=== PATIENT | male | born 1965 | race Two or more races ===

== ENCOUNTER 2025-01-29 11:56 | Inpatient (IN) | payer MEDICAID, OTHER ==
[~2025-01-29] VITALS: Ht 167.6 cm; Wt 57.3 kg
--- NOTE | 2025-01-29 12:06 | ED.PDOC ---
History of Present Illness HPI Comments 59 y/o M, with PMHx of HTN and HLD presents to the ED for CC of headache. EMS reports, patient is coming from [place] [address] where he c/o headache, dizziness, and blurred vision x5-6 days. EMS reports, patient has been non-compliant with his Lisinopril for approximately x5-6days; patient is hypertensive with a blood pressure of 160/106mmHg. Patient denies fever, chills, nausea, or vomiting. No other symptoms or modifying factors present at this time. Time Seen by MD: 12:00 Reviewed Notes: Nurses Notes, Chief Financial Officer Notes, Medications, Allergies Allergies: Coded Allergies: NO KNOWN ALLERGIES (Unverified , 01/29/25) Information Source: Patient, Emergency Med Personnel Mode of Arrival: EMS Severity: Moderate Timing: Days Duration: Since onset Prehospital treatment: None Past Medical History PAST MEDICAL HISTORY: High Lipids, HTN Surgical History: Denies all surgeries Family History Family History: Unknown Social History Smoker: Non-Smoker Alcohol: Denies ETOH Use Drugs: Denies Drug Use Lives In: Home Constitutional: denies: chills, diaphoresis, fatigue, fever, malaise, sweats, weakness, others EENTM: reports: blurred vision; denies: double vision, ear bleeding, ear discharge, ear drainage, ear pain, ear ringing, eye pain, eye redness, hearing loss, mouth pain, mouth swelling, nasal discharge, nose bleeding, nose congestion, nose pain, photophobia, tearing, throat pain, throat swelling, voice changes, others Respiratory: denies: cough, hemoptysis, orthopnea, SOB at rest, shortness of breath, SOB with excertion, stridor, wheezing, others Cardiovascular: denies: chest pain, dizzy spells, diaphoresis, Dyspnea on exertion, edema, irregular heart beat, left arm pain, lightheadedness, palpitations, PND, syncope, others Gastrointestinal: denies: abdomen distended, abdominal pain, blood streaked bowels, constipated, diarrhea, dysphagia, difficulty swallowing, hematemesis, melena, nausea, poor appetite, poor fluid intake, rectal bleeding, rectal pain, vomiting, others Genitourinary: denies: burning, dysuria, flank pain, frequency, hematuria, incontinence, penile discharge, penile sore, pain, testicle pain, testicle swelling, urgency, others Neurological: reports: dizziness, headache; denies: fainting, left sided numbness, left sided weakness, numbness, paresthesia, pre-existing deficit, right sided numbness, right sided weakness, seizure, speech problems, tingling, tremors, weakness, others Musculoskeletal: denies: back pain, gout, joint pain, joint swelling, muscle pain, muscle stiffness, neck pain, others Integumetry: denies: bruises, change in color, change in hair/nails, dryness, laceration, lesions, lumps, rash, wounds, others Allergic/Immunocompromised: denies: Difficulty Healing, Frequent Infections, Hives, Itching, others Hematologic/Lymphatic: denies: anemia, blood clots, easy bleeding, easy bruising, swollen glands, others Endocrine: denies: excessive hunger, excessive sweating, excessive thirst, excessive urination, flushing, intolerance to cold, intolerance to heat, unexplained weight gain, unexplained weight loss, others Psychiatric: denies: anxiety, bipolar disorder, depression, hopeless, panic disorder, schizophrenia, sleepless, suicidal, others All Other Systems: Reviewed and Negative Physical Exam General Appearance: Moderate Distress HEENT: Normal ENT Inspection, Pharynx Normal, TMs Normal Neck: Full Range of Motion, Non-Tender, Normal, Normal Inspection Respiratory: Chest Non-Tender, Lungs Clear, No Accessory Muscle Use, No Respiratory Distress, Normal Breath Sounds Cardiovascular: No Edema, No JVD, No Murmur, No Gallop, Normal Peripheral Pulses, Regular Rate/Rhythm Breast Exam: Deferred Gastrointestinal: No Organomegaly, Non Tender, No Pulsatile Mass, Normal Bowel Sounds, Soft Genitalia: Deferred Pelvic: Deferred Rectal: Deferred Extremities: No calf tenderness, Normal capillary refill, Normal inspection, Normal range of motion, Non-tender, No pedal edema Musculoskeletal : Apperance: Normal Neurologic: Alert, industrial hygiene technician II-XII nml as Tested, No Motor Deficits, Normal Affect, Normal Mood, No Sensory Deficits Cerebellar Function: NOT DONE Reflexes: NOT DONE Skin: Normal Color Peripheral Pulses: 3+ Radial (R), 3+ Radial (L) Lymphatic: No Adenopathy Was a procedure done? Was a procedure done?: No Differential Dx Considerations may include: hypertensive urgency, Rx non-compliance, generalized headache X-Ray, Labs, Meds, VS Vital Signs Date Time Temp Pulse Resp B/P (MAP) Pulse Ox O2 Delivery O2 Flow Rate FiO2 01/29/25 12:00 96 01/29/25 12:00 98.3 99 16 160/106 95 98.3 Lab Test 01/29/25 13:31 01/29/25 12:30 Range/Units Troponin I High Sensitivity Pending 12 </=54 ng/L White Blood Count 5.0 4.4-10.8 10^3/uL Red Blood Count 5.10 4.5-5.90 10^6/uL Hemoglobin 14.3 13.5-17.5 g/dL Hematocrit 42.5 41.0-53.0 % Mean Corpuscular Volume 83.3 80.0-100.0 fL Mean Corpuscular Hemoglobin 28.0 28.0-32.0 pg Mean Corpuscular Hemoglobin Concent 33.6 32.0-36.0 g/dL Red Cell Distribution Width 17.0 H 11.8-14.3 % Platelet Count 195 140-450 10^3/uL Mean Platelet Volume 8.0 6.9-10.8 fL Neutrophils (%) (Auto) 65.6 37.0-80.0 % Lymphocytes (%) (Auto) 22.1 10.0-50.0 % Monocytes (%) (Auto) 10.2 0.0-12.0 % Eosinophils (%) (Auto) 1.2 0.0-7.0 % Basophils (%) (Auto) 0.9 0.0-2.0 % Neutrophils # (Auto) 3.3 1.6-8.6 10 ^3/uL Lymphocytes # (Auto) 1.1 0.4-5.4 10 ^3/uL Monocytes # (Auto) 0.5 0-1.3 10 ^3/uL Eosinophils # (Auto) 0.1 0-0.8 10 ^3/uL Basophils # (Auto) 0 0-0.2 10 ^3/uL Nucleated Red Blood Cells 0.1 % Sodium Level 138 136-145 mmol/L Potassium Level 3.6 3.5-5.1 mmol/L Chloride Level 98 98-107 mmol/L Carbon Dioxide Level 23 20-31 mmol/L Anion Gap 17 H 5-15 Blood Urea Nitrogen 12 9-23 mg/dL Creatinine 1.46 H 0.700-1.30 mg/dL Glomerular Filtration Rate Calc 55 >90 mL/min BUN/Creatinine Ratio 8.2 L 10.0-20.0 Serum Glucose 91 74-106 mg/dL Calcium Level 9.7 8.7-10.4 mg/dL Patient alert. Blood pressure elevated. Was given clonidine. Saturation pristine on room air. Continues to have chest pain. Does not take care himself. Was given aspirin. Was given nitro. EKG reviewed does not show any acute changes. AFib. Explained to the patient. Continue monitoring. [place] [address] Ph: [phone] DIAGNOSTIC IMAGING Diagnostic Imaging Report : [id number] Signed PATIENT: KERRY AVINA ACCT: [id number] UNIT: [id number] : 1965 LOC: ER ROOM / BED: / AGE / SEX: 59 / M ADM STATUS: REG ER SERVICE 1222 ORDERING PHYSICIAN: MANPREET SHAW MD PROCEDURE(s): CXRP - CHEST PORTABLE REASON: sob ORDER NUMBER(s): [id number], ACCESSION NUMBER(s): [id number] CHEST RADIOGRAPH Indication: sob Technique: XY CHEST PORTABLE Comparison: None FINDINGS: The cardiac silhouette is unremarkable. The lungs demonstrate no pulmonary airspace consolidation. The pulmonary vasculature is unremarkable. There is no pleural effusion. There is no pneumothorax. IMPRESSION: No pulmonary airspace consolidation. ATED BY: MONICA MARCOS MD DICTATED DATE/TIME: 01/29/25 1301 SIGNED BY: MONICA MARCOS MD SIGNED DATE/TIME: 01/29/25 1301 CC: Time of 1ST Reevaluation: 12:30 Reevaluation 1ST: Unchanged Patient Education/Counseling: Diagnosis, Treatment Family Education/Counseling: No Family Present SEPSIS Sepsis Screen Physician Orders Electrocardigram (01/29/25 12:11) Chest Portable (01/29/25 12:22) Troponin-I Hs (01/29/25 13:22) Troponin-I Hs (01/29/25 15:22) Vital Signs Date Time Temp Pulse Resp B/P (MAP) Pulse Ox O2 Delivery O2 Flow Rate FiO2 8/7/25 12:00 96 01/29/25 12:00 98.3 99 16 160/106 95 98.3 Laboratory Tests Test 01/29/25 12:30 White Blood Count 5.0 10^3/uL (4.4-10.8) Departure 1 Departure Time of Disposition: 12:40 Impression: Primary Impression: Atrial fibrillation Qualified Codes: I48.0 - Paroxysmal atrial fibrillation Additional Impression: Hypertensive emergency Disposition: ADMITTED INPATIENT Admit to: Med Surg Condition: Guarded Critical Care Note Critical Care Time?: Yes (90 min-critical care time only) Stability Stability form required: No Heart Score Heart Score: Heart Score Response (Comments) Value History Slightly Suspicious 0 EKG Normal 0 Age 45-64 1 Risk Factors >3 or Hx ASHD 2 Troponin Normal limit 0 Total 3 I personally scribed for MANPREET SHAW MD ([email or web address]) on 01/29/25 at 12:06. Electronically submitted by Tasneem Meyer ([email or web address]). I personally scribed for MANPREET SHAW MD ([email or web address]) on 01/29/25 at 12:06. Electronically submitted by Tasneem Meyer ([email or web address]). I personally scribed for MANPREET SHAW MD ([email or web address]) on 01/29/25 at 13:55. Electronically submitted by Tasneem Meyer ([email or web address]). MANPREET SHAW MD Jan 29, 2025 12:06
[2025-01-29] MEDS: METOPROLOL TARTRATE 1MG/1ML-5ML VIAL IV ONE (12:45)
[2025-01-29 12:57] LABS: Hematocrit 42.5 % (41.0-53.0); Hemoglobin 14.3 g/dL (13.5-17.5); Mean Corpuscular Hemoglobin 28.0 pg (28.0-32.0); Mean Corpuscular Volume 83.3 fL (80.0-100.0); Nucleated Red Blood Cells % 0.1 %
[2025-01-29 12:59] LABS: Chloride 98 mmol/L (98-107); Potassium 3.6 mmol/L (3.5-5.1); Sodium 138 mmol/L (136-145)
[2025-01-29 13:00] LABS: Anion Gap 17 (5-15); Calcium 9.7 mg/dL (8.7-10.4); Carbon Dioxide 23 mmol/L (20-31)
--- NOTE | 2025-01-29 13:02 | DVH ---
CHEST RADIOGRAPH Indication: sob Technique: XY CHEST PORTABLE Comparison: None FINDINGS: The cardiac silhouette is unremarkable. The lungs demonstrate no pulmonary airspace consolidation. Th e pulmonary vasculature is unremarkable. There is no pleural effusion. There is no pneumothorax. IMPRESSION: No pulmonary airspace consolidation.
[2025-01-29 13:05] LABS: BUN/Creatinine Ratio 8.2 (10.0-20.0); Blood Urea Nitrogen 12 mg/dL (9-23); Glucose 91 mg/dL (74-106)
--- NOTE | 2025-01-29 18:29 | ECG ---
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
--- NOTE | 2025-01-29 21:46 | DVHHPRES ---
History of Present Illness Resident Creating Document: BELINDA DICKERSON RESIDENT History of Present Illness Akin Scott is a 59 yo male, with past medical history of Hypertension and hyperlipidemia. The patient presented to the ED with chief complaint of 2 days of throbbing diffused headache 9/10 associated with dizziness, and blurred vision. The patient reports been non-compliant with his Lisinopril for approximately one week due to personal problems and reports feeling "down" and crying easily and insomnia for the last couple months with loss of appetite and weight around 20 pounds in the last month. In the ED the EMS reported BP 160/106 mmHg. The patient denies suicidal/harming others thoughts, palpitation, fever, chills, nausea, vomit or other symptoms. The patient will be admitted for further evaluation and blood pressure control. Cardiovascular: HTN Past Surgical History: None Family History: None Smoke: No ALCOHOL: none Lives: Friends Review of Systems Constitutional: No: Fever, Chills, Sweats, Weakness, Malaise, Other Eyes: No: Pain, Vision change, Conjunctivae inflammation, Eyelid inflammation, Other, Redness ENT: No: Ear pain, Ear discharge, Nose pain, Nose discharge, Nose congestion, Mouth pain, Mouth swelling, Throat pain, Throat swelling, Other Respiratory: No: Cough, Dry, Shortness of breath, SOB with excertion, Wheezing, Hemoptysis, Pleuritic Pain, Sputum, Wheezing, Other Cardiovascular: Lt Headedness; No: Chest Pain, Palpitations, Orthopnea, Paroxysmal Noc. Dyspnea, Edema, Other Gastrointestinal: No: Nausea, Vomiting, Abdominal Pain, Diarrhea, Constipation, Melena, Hematochezia, Other Genitourinary: No Dysuria, No Frequency, No Incontinence, No Hematuria, No Retention, No Other Musculoskeletal: No: other, neck pain, shoulder pain, arm pain, back pain, hand pain, leg pain, foot pain Skin: No: Rash, Lesions, Jaundice, Bruising, Other Neurological: No: Weakness, Numbness, Incoordination, Change in speech, Confusion, Seizures, Other Allergies: Coded Allergies: NO KNOWN ALLERGIES (Unverified , 01/29/25) Medications Current Medications Medications Dose Ordered Sig/Gregoria Route Start Time Stop Time Status Last Admin Dose Admin Pantoprazole Sodium 40 mg DAILY PO 01/30/25 10:00 UNV Lisinopril 20 mg DAILY PO 01/30/25 10:00 UNV Exam Vital Signs Vital Signs Date Time Temp Pulse Resp B/P (MAP) Pulse Ox O2 Delivery O2 Flow Rate FiO2 01/29/25 20:37 98.0 78 12 126/91 (103) 96 98.0 01/29/25 16:18 Room Air General Appearance: Alert, Oriented X3, Cooperative, No acute distress HEENT: Atraumatic, Mucous membr. moist/pink Respiratory: Clear to auscultation, Normal air movement Cardiovascular: Regular rate, Normal S1, Normal S2, No murmurs Abdominal: Normal bowel sounds, Soft, No tenderness, No hepatospenomegaly Extremities: No clubbing, No cyanosis, No edema, Normal pulses, No tenderness/swelling Skin: No rashes, No breakdown, No significant lesion Neuro: Normal gait, Normal speech, Strength at 5/5 X4 ext, Normal tone, Sensation intact, Cranial nerves 3-12 NL Psych/Mental Status: Other (Oriented x3, Sad mood, cryies easily. Short and ocean transportation intermediary memory present, attention normal, recalls 3 objects, lenguage normal. ) Labs/Xrays Labs Test 01/29/25 15:50 01/29/25 12:30 Range/Units Troponin I High Sensitivity 10 </=54 ng/L White Blood Count 5.0 4.4-10.8 10^3/uL Red Blood Count 5.10 4.5-5.90 10^6/uL Hemoglobin 14.3 13.5-17.5 g/dL Hematocrit 42.5 41.0-53.0 % Mean Corpuscular Volume 83.3 80.0-100.0 fL Mean Corpuscular Hemoglobin 28.0 28.0-32.0 pg Mean Corpuscular Hemoglobin Concent 33.6 32.0-36.0 g/dL Red Cell Distribution Width 17.0 H 11.8-14.3 % Platelet Count 195 140-450 10^3/uL Mean Platelet Volume 8.0 6.9-10.8 fL Neutrophils (%) (Auto) 65.6 37.0-80.0 % Lymphocytes (%) (Auto) 22.1 10.0-50.0 % Monocytes (%) (Auto) 10.2 0.0-12.0 % Eosinophils (%) (Auto) 1.2 0.0-7.0 % Basophils (%) (Auto) 0.9 0.0-2.0 % Neutrophils # (Auto) 3.3 1.6-8.6 10 ^3/uL Lymphocytes # (Auto) 1.1 0.4-5.4 10 ^3/uL Monocytes # (Auto) 0.5 0-1.3 10 ^3/uL Eosinophils # (Auto) 0.1 0-0.8 10 ^3/uL Basophils # (Auto) 0 0-0.2 10 ^3/uL Nucleated Red Blood Cells 0.1 % Sodium Level 138 136-145 mmol/L Potassium Level 3.6 3.5-5.1 mmol/L Chloride Level 98 98-107 mmol/L Carbon Dioxide Level 23 20-31 mmol/L Anion Gap 17 H 5-15 Blood Urea Nitrogen 12 9-23 mg/dL Creatinine 1.46 H 0.700-1.30 mg/dL Glomerular Filtration Rate Calc 55 >90 mL/min BUN/Creatinine Ratio 8.2 L 10.0-20.0 Serum Glucose 91 74-106 mg/dL Calcium Level 9.7 8.7-10.4 mg/dL SEPSIS Sepsis Screen Date sepsis recognized/suspect: Jan 29, 2025 Time Sepsis recognized/suspect: 1620 Recent Procedure: No On Antibiotic Therapy: No Respiratory Rate >20: No Heart Rate >90: No Temp<36 C (96.8 F) or >38.3 C: No SBP <90 or MAP <65 mmHG: No New Acute Mental Status Change: No Is the patient on CPAP, BIPAP,: No Physician Orders Admit (01/29/25 21:23) Code Status (01/29/25 21:23) Vital Signs .PER UNIT PROTOCOL (01/29/25 21:23) Review Orders With Adm.Md (01/29/25 21:23) Bedrest With Bathroom Privileg (01/29/25 21:23) Notify Md Of Changes From Base (01/29/25 21:23) Advance Directive (01/29/25 21:23) Echo 2d Mode Cardiac Dop (01/29/25 21:23) Urinalysis (01/29/25 21:23) Patient Condition (01/29/25 21:23) Allergies (01/29/25 21:23) Notify Md Of Changes From Base (01/29/25 21:23) Complete Blood Count (01/30/25 04:00) Comprehensive Metabolic Panel (01/30/25 04:00) * Cardiology Consult (01/29/25 21:23) Pantoprazole Tablet (Protonix Tablet) (01/30/25 10:00) Drug Screen (01/29/25 21:23) Lisinopril Tablet (Zestril Tablet) (01/30/25 10:00) Vital Signs Date Time Temp Pulse Resp B/P (MAP) Pulse Ox O2 Delivery O2 Flow Rate FiO2 01/29/25 20:37 98.0 78 12 126/91 (103) 96 98.0 01/29/25 17:26 96/71 01/29/25 16:26 139/101 01/29/25 16:18 72 20 100 Room Air 01/29/25 16:18 97.6 72 20 139/101 (114) 100 97.6 Laboratory Tests Test 01/29/25 12:30 White Blood Count 5.0 10^3/uL (4.4-10.8) Medications Medications Dose Ordered Sig/Gregoria Route Start Time Stop Time Status Last Admin Dose Admin Clonidine HCl 0.2 mg ONCE ONCE PO 01/29/25 12:45 01/29/25 12:46 DC 01/29/25 16:26 0.2 MG Assessment/Plan Assessment/Plan #Hypertensive urgency #Headache, rule out CVA Clonidine 0.2mg Metoprolol 5mg EKG Troponins ECHO Cardiology consult Head CT #DAYLIN due to VMN #Dehydration NS IV fluids Avoid nephrotoxic drugs Monitoring of Crea and BUN #Hyperlipidemia Rovuastatin (Medication reconciliation) #Depression #Anxiety Psychiatric evaluation Cardiac diet DVT prophylaxis- Deambulating patient PUD prophylaxis Protonics. Goals of care discussed with the patient > 35 min. Discussed plan of care with Dr. Pedroza Code status: Full code PCP: Dr. Jacqueline Bond Plan discussed with: Patient, The patient agrees with the admission plan. Plan discussed with: Patient My Orders Orders - BELINDA DICKERSON RESIDENT Procedure Category Date Status Time Admit ADMIT 01/29/25 Transmitted 21:23 Code Status CODE 01/29/25 Transmitted 21:23 Vital Signs [facility] 01/29/25 In Process 21:23 Review Orders With [facility] 01/29/25 In Process Adm. 21:23 Bedrest With Bathroom [facility] 01/29/25 In Process Privileg 21:23 Notify Md Of Changes [facility] 01/29/25 In Process From Base 21:23 Advance Directive [facility] 01/29/25 In Process 21:23 Echo 2d Mode Cardiac US 01/29/25 Logged DOP 21:23 Urinalysis LAB 01/29/25 Logged 21:23 Patient Condition ORDERS 01/29/25 Transmitted 21:23 Allergies [facility] 01/29/25 In Process 21:23 Notify Md Of Changes [facility] 01/29/25 In Process From Base 21:23 Complete Blood Count LAB 01/30/25 Verified 04:00 Comprehensive LAB 01/30/25 Verified Metabolic Panel 04:00 * Cardiology Consult CONS 01/29/25 Transmitted 21:23 Pantoprazole Tablet [facility] 01/30/25 Logged (Protonix Tablet) 10:00 Drug Screen LAB 01/29/25 Logged 21:23 Lisinopril Tablet [facility] 01/30/25 Logged (Zestril Tablet) 10:00 Common Visit Codes: 99958-EWMPDKB INP/OBS CARE (HIGH) Secondary Visit Codes: 02787-[id number] CARE PLAN 30 MINUTES BELINDA DICKERSON RESIDENT Jan 29, 2025 21:46
[2025-01-29] MEDS: SODIUM CHLORIDE 0.9% 1,000 ML IV ONE (23:46)
[2025-01-30] MEDS ORDERED: LISI20TA56 PO (01:56)
[2025-01-30] MEDS ORDERED: ROSU20TA56 PO (01:56)
--- NOTE | 2025-01-30 01:59 | DVH ---
EXAM: CT HEAD WITHOUT CONTRAST INDICATION: Hypertensive urgency and headache TECHNIQUE: CT of the head without intravenous contrast. Radiation Dose : 1. Head: CT Dose: CTDI volume is 54 mGy. Dose-length product is 1065 mGy*cm The dose indicators for CT are the volume Computed Tomography (CT) Dose Index (CTDIvol) and the Dose Length Product (DLP), and are measured in units of mGy and mGy-cm, respectively. These indicators are not patient dose, but values generated from the CT scanner acquisition factors. The report includes radiation exposure data for exposures received during this examination. COMPARISON: None FINDINGS: Brain: No acute hemorrhage, mass effect, or cerebral edema. Mild global parenchymal volume loss. CSF Spaces: Size and morphology within normal limits. Small posterior fossa arachnoid cyst versus ryland a cisterna magna. Bones/Soft Tissues: No acute findings. Orbits/Sinuses/Mastoids: Unremarkable as visualized. IMPRESSION: 1. No acute intracranial abnormality. Radiation optimization: All CT scans at this facility use at least one of these dose optimization josee hniques: automated exposure control mA and/or kV adjustment per patient size (includes targeted exam s where dose is matched to clinical indication) or iterative reconstruction.
[2025-01-30 02:19] VITALS: BP 150/99; PULSE 67; RESP 18; TEMP 97.8; O2SAT 99
[2025-01-30 02:40] VITALS: BP 137/100; PULSE 70
[2025-01-30 05:09] LABS: Hematocrit 41.9 % (41.0-53.0); Hemoglobin 14.2 g/dL (13.5-17.5); Mean Corpuscular Hemoglobin 28.7 pg (28.0-32.0); Mean Corpuscular Volume 84.5 fL (80.0-100.0); Nucleated Red Blood Cells % 0.0 %
[2025-01-30 05:28] LABS: Alanine Aminotransferase < 9 U/L (7-40); Albumin 4.6 g/dL (3.2-4.8); Alkaline Phosphatase 47 U/L (46-116); Anion Gap 20 (5-15); BUN/Creatinine Ratio 6.6 (10.0-20.0); Bilirubin, Total 0.6 mg/dL (0.2-1.0); Blood Urea Nitrogen 8 mg/dL (9-23); Calcium 9.5 mg/dL (8.7-10.4); Carbon Dioxide 18 mmol/L (20-31); Chloride 99 mmol/L (98-107); Glucose 53 mg/dL (74-106); Potassium 3.5 mmol/L (3.5-5.1); Sodium 137 mmol/L (136-145); Total Protein 7.1 g/dL (5.7-8.2)
[2025-01-30 06:28] VITALS: BP 135/100; PULSE 70; RESP 18; TEMP 98; O2SAT 98
[2025-01-30 08:26] LABS: Urine Protein, UAD 1+ (Negative)
[2025-01-30 08:42] LABS: Cannabinoid Screen, Urine Neg (NEGATIVE)
[2025-01-30 08:43] LABS: Amphetamine Screen, Urine Neg (NEGATIVE); Barbiturate Scree,Urine Neg (NEGATIVE); Benzodiazephine Screen, Urine Neg (NEGATIVE); Cocaine Screen, Urine Neg (NEGATIVE); Opiate Scree,Urine Neg (NEGATIVE); Phencyclidine Screen, Urine Neg (NEGATIVE)
[2025-01-30] MEDS: LISINOPRIL 20 MG TAB PO SCH (10:00)
[2025-01-30] MEDS: PANTOPRAZOLE 40 MG TAB PO SCH (10:00)
--- NOTE | 2025-01-30 10:18 | DVHINCON2 ---
Date of Service if different f: Jan 30, 2025 Time of Service: 10:14 Consultation (TYASKIN) Labs Laboratory Tests Test 01/29/25 12:30 01/29/25 15:50 01/30/25 04:34 01/30/25 06:00 Hemoglobin A1c 5.0 % A1C (<5.7) Troponin I High Sensitivity 10 ng/L (</=54) White Blood Count 7.6 10^3/uL (4.4-10.8) Red Blood Count 4.96 10^6/uL (4.5-5.90) Hemoglobin 14.2 g/dL (13.5-17.5) Hematocrit 41.9 % (41.0-53.0) Mean Corpuscular Volume 84.5 fL (80.0-100.0) Mean Corpuscular Hemoglobin 28.7 pg (28.0-32.0) Mean Corpuscular Hemoglobin Concent 34.0 g/dL (32.0-36.0) Red Cell Distribution Width 16.9 % (11.8-14.3) Platelet Count 169 10^3/uL (140-450) Mean Platelet Volume 8.1 fL (6.9-10.8) Neutrophils (%) (Auto) 66.7 % (37.0-80.0) Lymphocytes (%) (Auto) 20.6 % (10.0-50.0) Monocytes (%) (Auto) 11.7 % (0.0-12.0) Eosinophils (%) (Auto) 0.4 % (0.0-7.0) Basophils (%) (Auto) 0.6 % (0.0-2.0) Neutrophils # (Auto) 5.1 10 ^3/uL (1.6-8.6) Lymphocytes # (Auto) 1.6 10 ^3/uL (0.4-5.4) Monocytes # (Auto) 0.9 10 ^3/uL (0-1.3) Eosinophils # (Auto) 0 10 ^3/uL (0-0.8) Basophils # (Auto) 0 10 ^3/uL (0-0.2) Nucleated Red Blood Cells 0.0 % Sodium Level 137 mmol/L (136-145) Potassium Level 3.5 mmol/L (3.5-5.1) Chloride Level 99 mmol/L (98-107) Carbon Dioxide Level 18 mmol/L (20-31) Anion Gap 20 (5-15) Blood Urea Nitrogen 8 mg/dL (9-23) Creatinine 1.22 mg/dL (0.700-1.30) Glomerular Filtration Rate Calc 69 mL/min (>90) BUN/Creatinine Ratio 6.6 (10.0-20.0) Serum Glucose 53 mg/dL (74-106) Calcium Level 9.5 mg/dL (8.7-10.4) Total Bilirubin 0.6 mg/dL (0.2-1.0) Aspartate Amino Transf (AST/SGOT) 18 U/L (13-40) Alanine Aminotransferase (ALT/SGPT) < 9 U/L (7-40) Alkaline Phosphatase 47 U/L (46-116) Total Protein 7.1 g/dL (5.7-8.2) Albumin 4.6 g/dL (3.2-4.8) Urine Color Yellow (Yellow) Urine Clarity Clear (Clear) Urine pH 6.0 (5.0-9.0) Urine Specific Draper 1.029 (1.001-1.035) Urine Protein 1+ (Negative) Urine Ketones 4+ (Negative) Urine Blood Negative /uL (Negative) Urine Nitrite Negative (Negative) Urine Bilirubin 1+ (Negative) Urine Urobilinogen 4 mg/dL (Negative) Urine Leukocyte Esterase 2+ /uL (Negative) Urine RBC 2 /hpf (0 - 3) Urine Microscopic WBC 102 /HPF (0-3) Urine Squamous Epithelial Cells None seen /hpf (<5) Urine Bacteria None seen /hpf (None Seen) Urine Mucus Few (None Seen) Urine Glucose Normal mg/dL (Normal) Urine Opiates Screen Neg (NEGATIVE) Urine Fentanyl Screen Neg (NEGATIVE) Urine Barbiturates Screen Neg (NEGATIVE) Urine Phencyclidine Screen Neg (NEGATIVE) Urine Amphetamines Screen Neg (NEGATIVE) Urine Benzodiazepines Screen Neg (NEGATIVE) Urine Cocaine Screen Neg (NEGATIVE) Urine Cannabinoids Screen Neg (NEGATIVE) Vitals Vital Signs Date Time Temp Pulse Resp B/P (MAP) Pulse Ox O2 Delivery O2 Flow Rate FiO2 01/30/25 10:00 121/89 01/30/25 06:28 98.0 70 18 98 98.0 01/29/25 16:18 Room Air Current medications Current Medications Medications Dose Ordered Sig/Gregoria Route Start Time Stop Time Status Last Admin Dose Admin Pantoprazole Sodium 40 mg DAILY PO 01/30/25 10:00 01/30/25 10:00 40 MG Lisinopril 20 mg DAILY PO 01/30/25 10:00 01/30/25 10:00 20 MG PSYCHIATRY BRIEF NOTE: Attempted to speak to primary team about this case, see patient. However, being told pt is in "holding," not current RN assigned, after multiple attempts. Once team assigned and can assist with consult, re-page telepsychiatry. DARINEL GATES MD Jan 30, 2025 10:18
--- NOTE | 2025-01-30 10:51 | DVHINCON2 ---
JALEN SERRANO [facility] 01/30/25 1050: Date Seen: Jan 30, 2025 Referring Physician MD Stanley Reason for Consultation Hypertensive urgency History of Present Illness This is a 59-year-old man who presented to the emergency room via EMS with a chief complaint of ALOC. 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 Denies chest pain, palpitations, diaphoresis, SOB, dizziness, or syncopal events. Cardiology consulted in the setting of hypertensive urgency with a systolic blood pressure up to 160 mmHg for which he was medicated with clonidine 0.2 mg p.o. x1. The patient admits to noncompliance on taking the Rx lisinopril 20 mg q.d. with last intake being 10 days ago. States when he is feeling well he does not take the antihypertensive medication. A 12 lead electrocardiogram revealed a sinus rhythm suggestive of left ventricular hypertrophy. Serial troponin levels are negative. Significant medical history includes hypertension and hyperlipidemia. Past Medical History Past medical history reviewed. No other significant than mentioned above. Past Surgical History Denies any past surgical history. Family History: Cerebrovascular accident (CVA) G8 MOTHER, FH: heart attack G8 FATHER, FH: leukemia G8 MOTHER, Family History Family history reviewed. Social History Denies the use of illicit drugs, alcohol, or tobacco use. Allergies: Coded Allergies: NO KNOWN ALLERGIES (Unverified , 01/29/25) Home Meds Reported Medications Rosuvastatin Calcium (Rosuvastatin Calcium) 20 Mg Tab, 1 TAB PO DAILY 01/30/25 Lisinopril (Lisinopril) 20 Mg Tab, 1 TAB PO DAILY 01/30/25 Home Meds Home medications reviewed. Current Medications Current Medications Medications (Trade) Dose Ordered Sig/Gregoria Route PRN Reason Start Time Stop Time Status Last Admin Pantoprazole Sodium (Protonix Tablet) 40 mg DAILY PO 01/30/25 10:00 01/30/25 10:00 Lisinopril (Zestril Tablet) 20 mg DAILY PO 01/30/25 10:00 01/30/25 10:00 Review of Systems Constitutional: No symptom reported Ears, Nose, & Throat: No symptom reported Eyes: No symptom reported Neurological: ALOC Pulmonary/Respiratory: No symptom reported Cardiovascular: No symptom reported Gastrointestinal: No symptom reported Genitourinary: No symptom reported Musculoskeletal: No symptom reported Skin: No symptom reported Psychiatric: No symptom reported Endocrine: No symptom reported Hemotologic/Lymphatic: No symptom reported Vital Signs Vital Signs Date Time Temp Pulse Resp B/P (MAP) Pulse Ox O2 Delivery O2 Flow Rate FiO2 01/30/25 10:00 121/89 01/30/25 06:28 98.0 70 18 98 98.0 01/29/25 16:18 Room Air Physical Exam General Appearance: Cooperative. Well developed. Well nourished. In no acute distress Head Exam: Normal inspection Neck Exam: Normal inspection. Non-tender. Normal alignment Pulmonary/Respiratory: Chest non-tender. Clear bilateral breath sounds Cardiovascular/Chest: Regular rate and rhythm. S1, S2. Sinus rhythm. No murmurs. No JVD. Peripheral Pulses: 2+ Radial (R). 2+ Radial (L). 2+ Pedal (R). 2+ Pedal (L) Abdominal Exam: Normal bowel sounds. Soft. Ankle Exam: Negative ankle edema Lower extremities: Negative lower extremity edema Neuro/Mental Status: A&O x4. Coherent Thoughts/Psych: Normal thought pattern. Rambling thoughts Appearance: In no acute distress Skin Exam: Normal inspection. Normal color. Warm. Dry Labs/Diagnostic Data Labs Test 01/30/25 06:00 01/30/25 04:34 01/29/25 15:50 01/29/25 12:30 Range/Units Urine Color Yellow Yellow Urine Clarity Clear Clear Urine pH 6.0 5.0-9.0 Urine Specific [place] 1.029 1.001-1.035 Urine Protein 1+ H Negative Urine Ketones 4+ H Negative Urine Blood Negative Negative /uL Urine Nitrite Negative Negative Urine Bilirubin 1+ Negative Urine Urobilinogen 4 H Negative mg/dL Urine Leukocyte Esterase 2+ Negative /uL Urine RBC 2 0 - 3 /hpf Urine Microscopic WBC 102 H 0-3 /HPF Urine Squamous Epithelial Cells None seen <5 /hpf Urine Bacteria None seen None Seen /hpf Urine Mucus Few None Seen Urine Glucose Normal Normal mg/dL Urine Opiates Screen Neg NEGATIVE Urine Fentanyl Screen Neg NEGATIVE Urine Barbiturates Screen Neg NEGATIVE Urine Phencyclidine Screen Neg NEGATIVE Urine Amphetamines Screen Neg NEGATIVE Urine Benzodiazepines Screen Neg NEGATIVE Urine Cocaine Screen Neg NEGATIVE Urine Cannabinoids Screen Neg NEGATIVE White Blood Count 7.6 # 4.4-10.8 10^3/uL Red Blood Count 4.96 4.5-5.90 10^6/uL Hemoglobin 14.2 13.5-17.5 g/dL Hematocrit 41.9 41.0-53.0 % Mean Corpuscular Volume 84.5 80.0-100.0 fL Mean Corpuscular Hemoglobin 28.7 28.0-32.0 pg Mean Corpuscular Hemoglobin Concent 34.0 32.0-36.0 g/dL Red Cell Distribution Width 16.9 H 11.8-14.3 % Platelet Count 169 140-450 10^3/uL Mean Platelet Volume 8.1 6.9-10.8 fL Neutrophils (%) (Auto) 66.7 37.0-80.0 % Lymphocytes (%) (Auto) 20.6 10.0-50.0 % Monocytes (%) (Auto) 11.7 0.0-12.0 % Eosinophils (%) (Auto) 0.4 0.0-7.0 % Basophils (%) (Auto) 0.6 0.0-2.0 % Neutrophils # (Auto) 5.1 1.6-8.6 10 ^3/uL Lymphocytes # (Auto) 1.6 0.4-5.4 10 ^3/uL Monocytes # (Auto) 0.9 0-1.3 10 ^3/uL Eosinophils # (Auto) 0 0-0.8 10 ^3/uL Basophils # (Auto) 0 0-0.2 10 ^3/uL Nucleated Red Blood Cells 0.0 % Sodium Level 137 136-145 mmol/L Potassium Level 3.5 3.5-5.1 mmol/L Chloride Level 99 98-107 mmol/L Carbon Dioxide Level 18 L 20-31 mmol/L Anion Gap 20 H 5-15 Blood Urea Nitrogen 8 L 9-23 mg/dL Creatinine 1.22 0.700-1.30 mg/dL Glomerular Filtration Rate Calc 69 >90 mL/min BUN/Creatinine Ratio 6.6 L 10.0-20.0 Serum Glucose 53 L 74-106 mg/dL Calcium Level 9.5 8.7-10.4 mg/dL Total Bilirubin 0.6 0.2-1.0 mg/dL Aspartate Amino Transferase (AST) 18 13-40 U/L Alanine Aminotransferase (ALT) < 9 7-40 U/L Alkaline Phosphatase 47 46-116 U/L Total Protein 7.1 5.7-8.2 g/dL Albumin 4.6 3.2-4.8 g/dL Troponin I High Sensitivity 10 </=54 ng/L Hemoglobin A1c 5.0 <5.7 % A1C Assessment Hypertensive urgency Dyslipidemia Suboptimal medical therapy Medical noncompliance Plan/Recommendation (Dr. Amin) The patient with a hypertensive urgency disease likely secondary to medical noncompliance. Continue home antihypertensive therapy with lisinopril q.d. and uptitrate to maintain a systolic blood pressure <140 mmHg. Counseled on medical compliance and low-Na diet. There is no further cardiac workup indicated at this time. We will sign off at this time. Thank you for allowing us to participate in this patient's care. Please call if you have any questions or concerns. This medical document was created using an electronic medical record system with voice recognition software and computerized dictation system. Although this document has been carefully reviewed, there might still be some phonetic and typographical errors. Occasional wrong-word or ``sound-alike substitutions may have occurred due to the inherent limitations of voice recognition software. These areas are purely typographical due to imperfections of the software programs and do not reflect any compromise in the patient's medical care. Please read the chart carefully and recognize, using context, where these substitutions have occurred. Plan discussed with: Patient, Other NYHA 2 Physical activity limitations: NA Date of Service: Jan 30, 2025 Billing Provider: JALEN SERRANO [facility] Cardiology Common Codes: [id number] INP/OBS CARE (High) ANGELIQUE AMIN MD 01/30/25 1702: Family History: Cerebrovascular accident (CVA) G8 MOTHER, FH: heart attack G8 FATHER, FH: leukemia G8 MOTHER, Allergies: Coded Allergies: NO KNOWN ALLERGIES (Unverified , 01/29/25) Home Meds Reported Medications Rosuvastatin Calcium (Rosuvastatin Calcium) 20 Mg Tab, 1 TAB PO DAILY 01/30/25 Lisinopril (Lisinopril) 20 Mg Tab, 1 TAB PO DAILY 01/30/25 Plan/Recommendation agree with FORM COVERER assessment and plan Date of Service: Jan 30, 2025 Billing Provider: ANGELIQUE AMIN MD Cardiology Common Codes: NOT BILLABLE JALEN SERRANO Jan 30, 2025 10:50 ANGELIQUE AMIN MD Jan 30, 2025 17:02
[2025-01-30 11:19] LABS: Cannabinoid Screen, Urine Neg (NEGATIVE)
[2025-01-30 11:30] LABS: Amphetamine Screen, Urine Neg (NEGATIVE); Barbiturate Scree,Urine Neg (NEGATIVE); Benzodiazephine Screen, Urine Neg (NEGATIVE); Cocaine Screen, Urine Neg (NEGATIVE); Opiate Scree,Urine Neg (NEGATIVE); Phencyclidine Screen, Urine Neg (NEGATIVE)
[2025-01-30] MEDS: SODIUM CHLORIDE 0.9% 1,000 ML IV SCH (15:10)
[2025-01-30 16:00] VITALS: BP 96/71; PULSE 81; RESP 17; TEMP 98; O2SAT 99
--- NOTE | 2025-01-30 18:29 | DVHPNRES ---
Progress Note Date Seen: Jan 30, 2025 Resident Creating Document: PRINCE MILLS RESIDENT Medical Necessity Reason Pt with a Central, PICC or Fol: No Subjective Review of Systems This is a 59-year-old male with past medical history of hypertension and hyperlipidemia. The patient presented to the ED with the complaint of throbbing headache which he rates as a 9/10 in intensity associated with dizziness, blurred vision and confusion. The patient reports being noncompliant with his lisinopril for almost 5 days due to personal issues and reports feeling down. Patient also states that he has had decreased appetite in the last 2 months has lost considerable amount of weight. She also mentions that he has had insomnia denies any suicidal ideation. The ED the EMS reported a blood pressure of 160/106. Head CT and chest x-ray were unremarkable blood pressure has been brought under control. Services consult has been sent as the patient is homeless. Past medical history:hypertension (on lisinopril), hyperlipidemia (on rosuvastatin) Past surgical history: none Social & Personal history: homeless Allergies: unknown Patient seen and examined at bedside. Patient is alert and oriented to time, place person and responding to all questions. Eyes: No Pain, No Vision change, No Conjunctivae inflammation, No Eyelid inflammation, No Other, No Redness ENT: No Ear pain, No Ear discharge, No Nose pain, No Nose discharge, No Nose congestion, No Mouth pain, No Mouth swelling, No Throat pain, No Throat swelling, No Other Cardiovascular: No Chest Pain, No Palpitations, No Orthopnea, No Paroxysmal No Dyspnea, No Edema, No Lt Headedness, No Other Respiratory: No Cough, No Dry, No Shortness of breath, No SOB with exertion, No Wheezing, No Hemoptysis, No Pleuritic Pain, No Sputum, No Other Gastrointestinal: No Nausea, No Vomiting, No Abdominal Pain, No Diarrhea, No Constipation, No Melena, No Hematochezia, No Other Genitourinary: No Dysuria, No Frequency, No Incontinence, No Hematuria, No Retention, No Other General Appearance: Cooperative. Well developed, temporal wasting Head Exam: Normal inspection Neck Exam: Normal inspection. Non-tender. Normal alignment Pulmonary/Respiratory: Chest non-tender. Clear bilateral breath sounds, no crackles, no wheezing. Cardiovascular/Chest: Regular rate and rhythm. No murmurs. No JVD. Peripheral Pulses: 2+ Radial (R). 2+ Radial (L). 2+ Pedal (R). 2+ Pedal (L) Abdominal Exam: Normal bowel sounds. Soft. normal abdomen, no visible veins, Nontender. No hepatospenomegaly. No masses Ankle Exam: Negative ankle edema Lower extremities: Negative lower extremity edema Neuro/Mental Status: A&O x4. Coherent. Thoughts/Psych: feeling down, decreased appetite, depressed Skin Exam: Normal inspection. Normal color. Warm. Dry Objective vital signs Vital Sign Date Time Temp Pulse Resp B/P (MAP) Pulse Ox O2 Delivery O2 Flow Rate FiO2 01/30/25 16:00 98.0 81 17 96/71 (79) 99 98.0 01/29/25 16:18 Room Air medications Current Medications Medications Dose Ordered Sig/Gregoria Route Start Time Stop Time Status Last Admin Dose Admin Pantoprazole Sodium 40 mg DAILY PO 01/30/25 10:00 01/30/25 10:00 40 MG Lisinopril 20 mg DAILY PO 01/30/25 10:00 01/30/25 10:00 20 MG Sodium Chloride 1,000 ml @ 75 mls/hr [id number] IV 01/30/25 13:45 01/30/25 15:10 75 MLS/HR laboratory and microbiology Laboratory Tests 01/30/25 04:34 Test 01/30/25 04:34 Range/Units Serum Glucose 53 L 74-106 mg/dL Labs and/or images reviewed: Labs reviewed by me, Image(s) reviewed by me Problem List/Assessment/Plan Problem List/Assessment/Plan #hypertensive urgency given 1 time iv clonidine and metoprolol continued with lisinopril po #DAYLIN due to VMN #dehydration #dyslipidemia on rosuvastatin #depression #vitamin D deficiency #medication non compliance #homeless social media marketing specialist consult done #PUD prophylaxis:protonix DVT prophylaxis:not given Goals of care: Full code, discussed for >15 minutes on 01/31/24 Plan discussed with patient Plan discussed with Dr Hernadez Plan discussed with: Patient My Orders My Orders Orders - PRINCE MILLS RESIDENT Procedure Category Date Status Time Sodium Chloride 0.9% PHA 01/30/25 In Process 13:45 Vitamin B12 LAB 01/30/25 In Process 13:38 * Watermaster CONS 8/8/25 Transmitted Consult Date of Service: Jan 30, 2025 Billing Provider: AWAIS HERNADEZ MD Common Visit Codes: [id number] INP/OBS CARE(HIGH) Secondary Visit Codes: [id number] CARE PLAN 30 MINUTES PRINCE MILLS RESIDENT Jan 30, 2025 18:29 AWAIS HERNADEZ MD Feb 01, 2025 22:24
[2025-01-30 20:00] VITALS: BP 113/84; PULSE 85; RESP 20; TEMP 98.1; O2SAT 98
[2025-01-30 22:40] VITALS: PULSE 91; RESP 18; O2SAT 100
[2025-01-31] VITALS (11 sets, daily range): BP systolic 110–128; BP diastolic 48–97; PULSE 69–91; RESP 15–18; TEMP 97.8–99.1; O2SAT 98–100
[2025-01-31 06:47] LABS: Hematocrit 40.9 % (41.0-53.0); Hemoglobin 14.0 g/dL (13.5-17.5); Mean Corpuscular Hemoglobin 28.5 pg (28.0-32.0); Mean Corpuscular Volume 83.4 fL (80.0-100.0); Nucleated Red Blood Cells % 0.2 %
[2025-01-31 06:50] LABS: Anion Gap 10 (5-15); Carbon Dioxide 28 mmol/L (20-31); Chloride 100 mmol/L (98-107); Potassium 3.6 mmol/L (3.5-5.1); Sodium 138 mmol/L (136-145)
[2025-01-31 06:51] LABS: Calcium 9.6 mg/dL (8.7-10.4)
[2025-01-31 06:56] LABS: BUN/Creatinine Ratio 6.3 (10.0-20.0); Glucose 98 mg/dL (74-106)
[2025-01-31 06:57] LABS: Blood Urea Nitrogen 8 mg/dL (9-23)
[2025-01-31] MEDS: ERGOCALCIFEROL 50,000 UNIT(1.25MG) CAP PO SCH (12:15)
[2025-01-31] MEDS: cefTRIAXone 1GM/50ML D5W 50 ML IV ONE (12:15)
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
--- NOTE | 2025-01-31 18:48 | DVHPN2 ---
Subjective Depressed Reviewed: Care Plan, H&P, Labs, Medications, Previous Orders, Radiology, Other (Blocker Automatic) Changes from previous H/P or p: No Changes Objective Vitals Vital Signs Date Time Temp Pulse Resp B/P (MAP) Pulse Ox O2 Delivery O2 Flow Rate FiO2 01/31/25 17:00 98.2 86 17 110/79 (89) 98 98.2 01/31/25 08:00 Room Air* 0 21 Intake/Output Intake and Output 01/31/25 07:00 Intake Total 75 ml Balance 75 ml IV Total 75 ml General Appearance: Alert, Oriented X3, Cooperative, No acute distress Lungs: Clear to auscultation Cardiovascular: Regular rate Abdomen: Normal bowel sounds, Soft, No tenderness Psych/Mental Status: Other (Depressed mood) Medications Current Medications Medications Dose Ordered Sig/Gregoria Route Start Time Stop Time Status Last Admin Dose Admin Pantoprazole Sodium 40 mg DAILY PO 01/30/25 10:00 01/31/25 09:34 40 MG Lisinopril 20 mg DAILY PO 01/30/25 10:00 01/31/25 09:35 20 MG Sodium Chloride 1,000 ml @ 75 mls/hr [id number] IV 01/30/25 13:45 01/31/25 17:47 75 MLS/HR Ceftriaxone Sodium 50 ml @ 100 mls/hr DAILY@09 IV 02/01/25 09:00 Ergocalciferol 50,000 unit Q7D PO 01/31/25 12:15 01/31/25 12:15 50,000 UNIT Laboratory Results Laboratory Tests 01/31/25 05:17 Chemistry Test 01/31/25 05:17 Calcium Level 9.6 mg/dL (8.7-10.4) Urinalysis Test 01/30/25 06:00 Urine Color Yellow (Yellow) Urine Clarity Clear (Clear) Urine pH 6.0 (5.0-9.0) Urine Specific [place] 1.029 (1.001-1.035) Urine Protein 1+ (Negative) H Urine Ketones 4+ (Negative) H Urine Blood Negative /uL (Negative) Urine Nitrite Negative (Negative) Urine Bilirubin 1+ (Negative) Urine Urobilinogen 4 mg/dL (Negative) H Urine Leukocyte Esterase 2+ /uL (Negative) Urine RBC 2 /hpf (0 - 3) Urine Microscopic WBC 102 /HPF (0-3) H Urine Squamous Epithelial Cells None seen /hpf (<5) Urine Bacteria None seen /hpf (None Seen) Urine Mucus Few (None Seen) Urine Glucose Normal mg/dL (Normal) Assessment/Plan Assessment/Plan Hypertensive urgency Dizziness and blurred vision/questionable TIA UTI Vitamin-D deficiency Acute kidney injury Hypertension Dyslipidemia Depression Homelessness as per last week Plan: Rocephin. Urine culture. Vitamin-D replacement. Psychiatric consultation. Further plan per orders Plan discussed with: Patient My Orders Orders - MOSES YORK MD Procedure Category Date Status Time Ceftriaxone 1gm/50ml PHA 02/01/25 In Process D5w (Rocephin) 09:00 Urine Bacterial MARIA DEL ROSARIO 01/31/25 Logged Culture 12:10 Ergocalciferol PHA 01/31/25 In Process (Vitamin D 50,000 12:15 Date of Service: Jan 31, 2025 Billing Provider: MOSES YORK MD Common Visit Codes: [id number] INP/OBS CARE(HIGH) MOSES YORK MD Jan 31, 2025 18:48
[2025-02-01] VITALS (12 sets, daily range): BP systolic 121–149; BP diastolic 92–115; PULSE 73–97; RESP 16–18; TEMP 97.2–98.2; O2SAT 92–100
[2025-02-01] MEDS: cefTRIAXone 1GM/50ML D5W 50 ML IV SCH (09:29)
--- NOTE | 2025-02-01 10:08 | DVHSR ---
APPROVED REPORT EXAM: Two-dimensional and M-mode echocardiogram with Doppler and color Doppler. Blood Pressure: 111/84 mmHg INDICATION hypertensive urgency RISK FACTORS Height: 5'6, Weight: 111 DIMENSIONS LVDd4.1 (3.8-5.7cm)LA (2D)4.0 (1.9-4.0cm)Aortic Root3.2 (2.0-3.7cm) LVDs2.4 (2.5-4.0cm)LA (MM) (1.9-4.0cm)Aortic Cusp Exc1.3 (1.5-2.0cm) EF (%) 71.3 (55-70%)Rt. Atrium4.2 (1.9-4.0cm)Asc. Aorta3.0 cm IVSd0.9 (0.7-1.1cm)RV (D)3.6 (1.8-2.4cm) PWd1.1 (0.7-1.1cm) Mitral Valve MitralMitral Stenosis E wave0.62m/sMV Mean GR.mmHg A wave0.90m/sMV Peak GR.97mmHg E/A ratio0.72D MVAcm2 DECEL [id number] 1/2 Timems Aortic Valve Aortic ValveAortic Stenosis V11.16m/Shobha Mean GR.4mmHg V21.44m/Shobha Peak GR.8mmHg LVOT Diameter2.0 (1.8-2.4cm)Doppler AVA2.53cm2 Pulmonic Valve V20.81m/s Tricuspid Valve TR Velocity2.64m/s [id number] Other Information Quality : Technically LimitedRhythm : Technically limited study due to body habitus. Conclusion lvef 55% mild LVH normal rv function right atrium enlarged no severe valve abnormalities noted normal pericardium
[2025-02-01] MEDS ORDERED: ACETAMINOPHEN 325 MG TAB PO PRN (13:45)
--- NOTE | 2025-02-01 13:55 | DVHPNRES ---
Progress Note Date Seen: Feb 01, 2025 Resident Creating Document: PRINCE MILLS RESIDENT Medical Necessity Reason Pt with a Central, PICC or Fol: No Subjective Review of Systems This is a 59-year-old male with past medical history of hypertension and hyperlipidemia. The patient presented to the ED with the complaint of throbbing headache which he rates as a 9/10 in intensity associated with dizziness, blurred vision and confusion. The patient reports being noncompliant with his lisinopril for almost 5 days due to personal issues and reports feeling down. Patient also states that he has had decreased appetite in the last 2 months has lost considerable amount of weight. She also mentions that he has had insomnia denies any suicidal ideation. The ED the EMS reported a blood pressure of 160/106. Head CT and chest x-ray were unremarkable blood pressure has been brought under control. Services consult has been sent as the patient is homeless. Patient still complains of a headache which is the same intensity as it was on admission for which he has been given tyelenol and norco prn. The patient also mentions he was not able to sleep all through last night and mentions waking up with panic when he tried to go to sleep. The patient states that he has been eating much better since he got here. a psych consult has been called for the patient. Past medical history:hypertension (on lisinopril), hyperlipidemia (on rosuvastatin) Past surgical history: none Social & Personal history: homeless Allergies: unknown Patient seen and examined at bedside. Patient is alert and oriented to time, place person and responding to all questions. Eyes: No Pain, No Vision change, No Conjunctivae inflammation, No Eyelid inflammation, No Other, No Redness ENT: No Ear pain, No Ear discharge, No Nose pain, No Nose discharge, No Nose congestion, No Mouth pain, No Mouth swelling, No Throat pain, No Throat swelling, No Other Cardiovascular: No Chest Pain, No Palpitations, No Orthopnea, No Paroxysmal No Dyspnea, No Edema, No Lt Headedness, No Other Respiratory: No Cough, No Dry, No Shortness of breath, No SOB with exertion, No Wheezing, No Hemoptysis, No Pleuritic Pain, No Sputum, No Other Gastrointestinal: No Nausea, No Vomiting, No Abdominal Pain, No Diarrhea, No Constipation, No Melena, No Hematochezia, No Other Genitourinary: No Dysuria, No Frequency, No Incontinence, No Hematuria, No Retention, No Other General Appearance: Cooperative. Well developed, temporal wasting Head Exam: Normal inspection Neck Exam: Normal inspection. Non-tender. Normal alignment Pulmonary/Respiratory: Chest non-tender. Clear bilateral breath sounds, no crackles, no wheezing. Cardiovascular/Chest: Regular rate and rhythm. No murmurs. No JVD. Peripheral Pulses: 2+ Radial (R). 2+ Radial (L). 2+ Pedal (R). 2+ Pedal (L) Abdominal Exam: Normal bowel sounds. Soft. normal abdomen, no visible veins, Nontender. No hepatospenomegaly. No masses Ankle Exam: Negative ankle edema Lower extremities: Negative lower extremity edema Neuro/Mental Status: A&O x4. Coherent. Thoughts/Psych: feeling down, improved appetite, depressed Skin Exam: Normal inspection. Normal color. Warm. Dry Objective vital signs Vital Sign Date Time Temp Pulse Resp B/P (MAP) Pulse Ox O2 Delivery O2 Flow Rate FiO2 02/01/25 13:00 97.5 86 17 142/113 (123) 92 97.5 02/01/25 08:00 Room Air* 0 21 Total Intake and Output 01/31/25 01/31/25 02/01/25 15:00 23:00 07:00 Intake Total 50 ml 600 ml 910 ml Output Total 400 ml Balance 50 ml 200 ml 910 ml medications Current Medications Medications Dose Ordered Sig/Gregoria Route Start Time Stop Time Status Last Admin Dose Admin Pantoprazole Sodium 40 mg DAILY PO 01/30/25 10:00 02/01/25 09:29 40 MG Lisinopril 20 mg DAILY PO 01/30/25 10:00 02/01/25 09:30 20 MG Sodium Chloride 1,000 ml @ 75 mls/hr [id number] IV 01/30/25 13:45 01/31/25 17:47 75 MLS/HR Ceftriaxone Sodium 50 ml @ 100 mls/hr DAILY@09 IV 02/01/25 09:00 02/01/25 09:29 100 MLS/HR Ergocalciferol 50,000 unit Q7D PO 01/31/25 12:15 01/31/25 12:15 50,000 UNIT Melatonin 5 mg HS PO 02/01/25 22:00 UNV Acetaminophen/ Hydrocodone Bitart 1 tab Q6HPRN PRN PO 02/01/25 13:45 UNV Acetaminophen 325 mg Q4HP PRN PO 02/01/25 13:45 UNV laboratory and microbiology Laboratory Tests 01/31/25 05:17 Test 01/31/25 05:17 Range/Units Serum Glucose 98 74-106 mg/dL Microbiology Date/Time Source Procedure Growth Status 01/31/25 21:13 Voided Urine Urine Culture - Preliminary Resulted Problem List/Assessment/Plan Problem List/Assessment/Plan #hypertensive urgency given 1 time iv clonidine and metoprolol continued with lisinopril 20 mg daily po #DAYLIN due to VMN #UTI ceftriaxone-50 ml@100ml/hr #dehydration #dyslipidemia on rosuvastatin #depression #insomnia 5mg daily po #vitamin D deficiency 50,000 units po #medication non compliance #homeless clinical social work therapist consult done #PUD prophylaxis:protonix DVT prophylaxis:not given Goals of care: Full code, discussed for >15 minutes on 02/02/24 Plan discussed with patient Plan discussed with Dr York Plan discussed with: Patient My Orders My Orders Orders - PRINCE MILLS RESIDENT Procedure Category Date Status Time Melatonin (Melatonin) PHA 02/01/25 Logged 22:00 Date of Service: Feb 01, 2025 Billing Provider: MOSES YORK MD Common Visit Codes: [id number] INP/OBS CARE(HIGH) PRINCE MILLS RESIDENT Feb 01, 2025 13:55 MOSES YORK MD Feb 01, 2025 17:49
[2025-02-01] MEDS: HYDROcodone-ACET 5/325MG TAB PO PRN (14:02)
[2025-02-01 19:44] LABS: Urine Protein, UAD Negative (Negative)
[2025-02-01] MEDS: MELATONIN 5 MG TAB PO SCH (21:25)
[2025-02-02] VITALS (10 sets, daily range): BP systolic 116–165; BP diastolic 88–110; PULSE 69–83; RESP 17–19; TEMP 97.6–98.3; O2SAT 97–100
[2025-02-02 06:49] LABS: Hematocrit 38.9 % (41.0-53.0); Hemoglobin 13.3 g/dL (13.5-17.5); Mean Corpuscular Hemoglobin 28.6 pg (28.0-32.0); Mean Corpuscular Volume 83.5 fL (80.0-100.0); Nucleated Red Blood Cells % 0.1 %
[2025-02-02 06:56] LABS: Anion Gap 6 (5-15); Chloride 99 mmol/L (98-107); Sodium 138 mmol/L (136-145)
[2025-02-02 06:57] LABS: Calcium 9.4 mg/dL (8.7-10.4)
[2025-02-02 07:02] LABS: BUN/Creatinine Ratio 14.8 (10.0-20.0); Blood Urea Nitrogen 13 mg/dL (9-23); Glucose 83 mg/dL (74-106)
[2025-02-02 07:03] LABS: Carbon Dioxide 33 mmol/L (20-31); Potassium 5.1 mmol/L (3.5-5.1)
[2025-02-02] MEDS: CARVEDILOL 3.125 MG TAB PO ONE (10:30)
--- NOTE | 2025-02-02 14:33 | DVHPNRES ---
Progress Note Date Seen: Feb 02, 2025 Resident Creating Document: PRINCE MILLS RESIDENT Medical Necessity Reason Pt with a Central, PICC or Fol: No Subjective Review of Systems This is a 59-year-old male with past medical history of hypertension and hyperlipidemia. The patient presented to the ED with the complaint of throbbing headache which he rates as a 9/10 in intensity associated with dizziness, blurred vision and confusion. The patient reports being noncompliant with his lisinopril for almost 5 days due to personal issues and reports feeling down. Patient also states that he has had decreased appetite in the last 2 months has lost considerable amount of weight. She also mentions that he has had insomnia denies any suicidal ideation. The ED the EMS reported a blood pressure of 160/106. Head CT and chest x-ray were unremarkable blood pressure has been brought under control. Services consult has been sent as the patient is homeless. Patient still complains of a headache which is the same intensity as it was on admission for which he has been given tyelenol and norco prn. The patient also mentions he was not able to sleep all through last night and mentions waking up with panic when he tried to go to sleep. The patient states that he has been eating much better since he got here. a psych consult has been called for the patient. The patient reports eating much better and sleeping well last night. The patient still has high blood pressure of 140/109 for which he was put on carvedilol. The patient reports feeling worse yesterday and not wanting to get out of bed or move. As per the psych consult, the patient has MDD S moderate and codependency and has significant persistent anger and was put on Remeron 15 mg po hs. Eyes: No Pain, No Vision change, No Conjunctivae inflammation, No Eyelid inflammation, No Other, No Redness ENT: No Ear pain, No Ear discharge, No Nose pain, No Nose discharge, No Nose congestion, No Mouth pain, No Mouth swelling, No Throat pain, No Throat swelling, No Other Cardiovascular: No Chest Pain, No Palpitations, No Orthopnea, No Paroxysmal No Dyspnea, No Edema, No Lt Headedness, No Other Respiratory: No Cough, No Dry, No Shortness of breath, No SOB with exertion, No Wheezing, No Hemoptysis, No Pleuritic Pain, No Sputum, No Other Gastrointestinal: No Nausea, No Vomiting, right lower Abdominal Pain, No Diarrhea, No Constipation, No Melena, No Hematochezia, No Other Genitourinary: No Dysuria, No Frequency, No Incontinence, No Hematuria, No Retention, No Other General Appearance: Cooperative. Well developed, temporal wasting Head Exam: Normal inspection Neck Exam: Normal inspection. Non-tender. Normal alignment Pulmonary/Respiratory: Chest non-tender. Clear bilateral breath sounds, no crackles, no wheezing. Cardiovascular/Chest: Regular rate and rhythm. No murmurs. No JVD. Peripheral Pulses: 2+ Radial (R). 2+ Radial (L). 2+ Pedal (R). 2+ Pedal (L) Abdominal Exam: Normal bowel sounds. Soft. normal abdomen, no visible veins, m ild tenderness on right lower abdomen. No hepatospenomegaly. No masses Ankle Exam: Negative ankle edema Lower extremities: Negative lower extremity edema Neuro/Mental Status: A&O x4. Coherent. Thoughts/Psych: feeling down, improved appetite, depressed Skin Exam: Normal inspection. Normal color. Warm. Dry Objective vital signs Vital Sign Date Time Temp Pulse Resp B/P (MAP) Pulse Ox O2 Delivery O2 Flow Rate FiO2 02/02/25 13:18 97.8 82 18 130/94 (106) 98 97.8 02/01/25 20:00 Room Air* 0 21 Total Intake and Output 02/01/25 02/01/25 02/02/25 15:00 23:00 07:00 Intake Total 100 ml 800 ml 647 ml Balance 100 ml 800 ml 647 ml medications Current Medications Medications Dose Ordered Sig/Gregoria Route Start Time Stop Time Status Last Admin Dose Admin Pantoprazole Sodium 40 mg DAILY PO 01/30/25 10:00 02/02/25 08:48 40 MG Lisinopril 20 mg DAILY PO 01/30/25 10:00 02/02/25 08:49 20 MG Sodium Chloride 1,000 ml @ 75 mls/hr [id number] IV 01/30/25 13:45 02/02/25 08:49 75 MLS/HR Ceftriaxone Sodium 50 ml @ 100 mls/hr DAILY@09 IV 02/01/25 09:00 02/02/25 08:48 100 MLS/HR Ergocalciferol 50,000 unit Q7D PO 01/31/25 12:15 01/31/25 12:15 50,000 UNIT Melatonin 5 mg HS PO 02/01/25 22:00 02/01/25 21:25 5 MG Acetaminophen/ Hydrocodone Bitart 1 tab Q6HPRN PRN PO 02/01/25 13:45 02/01/25 21:25 1 TAB Acetaminophen 325 mg Q4HP PRN PO 02/01/25 13:45 Mirtazapine 15 mg HS PO 02/02/25 22:00 Carvedilol 3.125 mg Q12HR PO 02/02/25 22:00 laboratory and microbiology Laboratory Tests 02/02/25 05:46 Test 02/02/25 05:46 Range/Units Serum Glucose 83 74-106 mg/dL Microbiology Date/Time Source Procedure Growth Status 01/31/25 21:13 Voided Urine Urine Culture - Preliminary Resulted Labs and/or images reviewed: Labs reviewed by me, Image(s) reviewed by me Problem List/Assessment/Plan Problem List/Assessment/Plan #hypertensive urgency given 1 time iv clonidine and metoprolol continued with lisinopril 20 mg daily po carvedilol 3.125 mg po once added #DAYLIN due to VMN #UTI ceftriaxone-50 ml@100ml/hr #dehydration #dyslipidemia on rosuvastatin #depression Remeron 15 mg po hs #insomnia melatonin 5mg daily po #vitamin D deficiency 50,000 units po #medication non compliance #homeless social services counselor consult done #PUD prophylaxis:protonix DVT prophylaxis:not given Goals of care: Full code, discussed for >15 minutes on 02/03/24 Plan discussed with patient Plan discussed with Dr Hernadez Plan discussed with: Patient PRINCE MILLS RESIDENT Feb 02, 2025 14:33
[2025-02-02] MEDS: MIRTAZAPINE 30 MG TAB PO SCH (21:35)
[2025-02-02] MEDS: CARVEDILOL 3.125 MG TAB PO SCH (21:35)
[2025-02-03] VITALS (12 sets, daily range): BP systolic 104–145; BP diastolic 59–107; PULSE 55–85; RESP 17–20; TEMP 97.8–98.5; O2SAT 95–100
[2025-02-03 06:51] LABS: Chloride 100 mmol/L (98-107); Potassium 4.7 mmol/L (3.5-5.1); Sodium 142 mmol/L (136-145)
[2025-02-03 06:52] LABS: Anion Gap 7 (5-15); Calcium 9.9 mg/dL (8.7-10.4)
[2025-02-03 06:57] LABS: BUN/Creatinine Ratio 12.4 (10.0-20.0); Blood Urea Nitrogen 12 mg/dL (9-23); Glucose 79 mg/dL (74-106)
[2025-02-03 06:58] LABS: Carbon Dioxide 35 mmol/L (20-31)
[2025-02-03 07:03] LABS: Hematocrit 40.9 % (41.0-53.0); Hemoglobin 13.8 g/dL (13.5-17.5); Mean Corpuscular Hemoglobin 28.4 pg (28.0-32.0); Mean Corpuscular Volume 83.9 fL (80.0-100.0)
[2025-02-03] MEDS ORDERED: CARV-214 PO (08:10)
[2025-02-03] MEDS ORDERED: MIR30T PO (08:10)
[2025-02-03 09:34] LABS: Total Cells Counted 100.0 (100)
--- NOTE | 2025-02-03 15:01 | DVHDSRES ---
Discharge Summary Date of Admission Resident Creating Document: PRINCE MILLS RESIDENT Jan 29, 2025 at 21:23 Date of Discharge: Feb 03, 2025 Labs/Diagnostic Data: Laboratory Results Test 02/03/25 05:38 02/02/25 05:46 02/01/25 13:25 01/30/25 06:00 White Blood Count 4.7 10^3/uL (4.4-10.8) Red Blood Count 4.88 10^6/uL (4.5-5.90) Hemoglobin 13.8 g/dL (13.5-17.5) Hematocrit 40.9 % (41.0-53.0) Mean Corpuscular Volume 83.9 fL (80.0-100.0) Mean Corpuscular Hemoglobin 28.4 pg (28.0-32.0) Mean Corpuscular Hemoglobin Concent 33.8 g/dL (32.0-36.0) Red Cell Distribution Width 17.1 % (11.8-14.3) Platelet Count 204 10^3/uL (140-450) Mean Platelet Volume 8.4 fL (6.9-10.8) Neutrophils (%) (Auto) % (37.0-80.0) Lymphocytes (%) (Auto) % (10.0-50.0) Monocytes (%) (Auto) % (0.0-12.0) Basophils (%) (Auto) % (0.0-2.0) Neutrophils # (Auto) 10 ^3/uL (1.6-8.6) Lymphocytes # (Auto) 10 ^3/uL (0.4-5.4) Monocytes # (Auto) 10 ^3/uL (0-1.3) Differential Total Cells Counted 100.0 (100) Neutrophils % (Manual) 50 (37.0-80.0) Band Neutrophils % (Manual) 0 Lymphocytes % (Manual) 28 (10.0-50.0) Monocytes % (Manual) 20 (0-12) Eosinophils % (Manual) 2 (0-7) Basophils % (Manual) 0 (0.0-2.0) Metamyelocytes % (manual) 0 Myelocytes % (Manual) 0 Promyelocytes % (Manual) 0 Blast Cells % (Manual) 0 Reactive Lymphocytes 0 Platelet Estimate Adequate Sodium Level 142 mmol/L (136-145) Potassium Level 4.7 mmol/L (3.5-5.1) Chloride Level 100 mmol/L (98-107) Carbon Dioxide Level 35 mmol/L (20-31) Anion Gap 7 (5-15) Blood Urea Nitrogen 12 mg/dL (9-23) Creatinine 0.97 mg/dL (0.700-1.30) Glomerular Filtration Rate Calc 90 mL/min (>90) BUN/Creatinine Ratio 12.4 (10.0-20.0) Serum Glucose 79 mg/dL (74-106) Calcium Level 9.9 mg/dL (8.7-10.4) Eosinophils (%) (Auto) 1.9 % (0.0-7.0) Eosinophils # (Auto) 0.1 10 ^3/uL (0-0.8) Basophils # (Auto) 0 10 ^3/uL (0-0.2) Nucleated Red Blood Cells 0.1 % Urine Color Light-yellow (Yellow) Urine Clarity Clear (Clear) Urine pH 5.5 (5.0-9.0) Urine Specific [place] 1.014 (1.001-1.035) Urine Protein Negative (Negative) Urine Ketones Negative (Negative) Urine Blood Negative /uL (Negative) Urine Nitrite Negative (Negative) Urine Bilirubin Negative (Negative) Urine Urobilinogen Normal mg/dL (Negative) Urine Leukocyte Esterase Trace /uL (Negative) Urine Glucose Normal mg/dL (Normal) Stool Occult Blood Negative (Negative) Stool Occult Blood Sample #3 (Negative) Urine RBC 2 /hpf (0 - 3) Urine Microscopic WBC 102 /HPF (0-3) Urine Squamous Epithelial Cells None seen /hpf (<5) Urine Bacteria None seen /hpf (None Seen) Urine Mucus Few (None Seen) Urine Opiates Screen Neg (NEGATIVE) Urine Fentanyl Screen Neg (NEGATIVE) Urine Barbiturates Screen Neg (NEGATIVE) Urine Phencyclidine Screen Neg (NEGATIVE) Urine Amphetamines Screen Neg (NEGATIVE) Urine Benzodiazepines Screen Neg (NEGATIVE) Urine Cocaine Screen Neg (NEGATIVE) Urine Cannabinoids Screen Neg (NEGATIVE) Test 01/30/25 04:34 01/29/25 15:50 01/29/25 12:30 Total Bilirubin 0.6 mg/dL (0.2-1.0) Aspartate Amino Transferase (AST) 18 U/L (13-40) Alanine Aminotransferase (ALT) < 9 U/L (7-40) Alkaline Phosphatase 47 U/L (46-116) Total Protein 7.1 g/dL (5.7-8.2) Albumin 4.6 g/dL (3.2-4.8) Vitamin B12 Level 863 pg/mL (211-911) Vitamin D 25-Hydroxy 28.1 ng/mL (30.0-100) Thyroid Stimulating Hormone (TSH) 1.34 uIU/mL (0.55-4.78) Troponin I High Sensitivity 10 ng/L (</=54) Hemoglobin A1c 5.0 % A1C (<5.7) Other Laboratory Tests 02/03/25 05:38 Brief Hx & Hospital Course: This is a 59-year-old male with past medical history of hypertension and hyperlipidemia. The patient presented to the ED with the complaint of throbbing headache which he rates as a 9/10 in intensity associated with dizziness, blurred vision and confusion. The patient reports being noncompliant with his lisinopril for almost 5 days due to personal issues and reports feeling down. Patient also states that he has had decreased appetite in the last 2 months has lost considerable amount of weight. She also mentions that he has had insomnia denies any suicidal ideation. The ED the EMS reported a blood pressure of 160/106. Head CT and chest x-ray were unremarkable blood pressure has been brought under control. Services consult has been sent as the patient is homeless. Patient still complains of a headache which is the same intensity as it was on admission for which he has been given tyelenol and norco prn. The patient also mentions he was not able to sleep all through last night and mentions waking up with panic when he tried to go to sleep. The patient states that he has been eating much better since he got here. a psych consult has been called for the patient. The patient reports eating much better and sleeping well last night. The patient still has high blood pressure of 140/109 for which he was put on carvedilol. The patient reports feeling worse yesterday and not wanting to get out of bed or move. As per the psych consult, the patient has MDD S moderate and codependency and has significant persistent anger and was put on Remeron 15 mg po hs. The patient feels better and is ready too be discharged and follow up in discharge clinic. Eyes: No Pain, No Vision change, No Conjunctivae inflammation, No Eyelid inflammation, No Other, No Redness ENT: No Ear pain, No Ear discharge, No Nose pain, No Nose discharge, No Nose congestion, No Mouth pain, No Mouth swelling, No Throat pain, No Throat swelling, No Other Cardiovascular: No Chest Pain, No Palpitations, No Orthopnea, No Paroxysmal No Dyspnea, No Edema, No Lt Headedness, No Other Respiratory: No Cough, No Dry, No Shortness of breath, No SOB with exertion, No Wheezing, No Hemoptysis, No Pleuritic Pain, No Sputum, No Other Gastrointestinal: No Nausea, No Vomiting, No Diarrhea, No Constipation, no pain, No Melena, No Hematochezia, No Other Genitourinary: No Dysuria, No Frequency, No Incontinence, No Hematuria, No Retention, No Other General Appearance: Cooperative. Well developed, temporal wasting Head Exam: Normal inspection Neck Exam: Normal inspection. Non-tender. Normal alignment Pulmonary/Respiratory: Chest non-tender. Clear bilateral breath sounds, no crackles, no wheezing. Cardiovascular/Chest: Regular rate and rhythm. No murmurs. No JVD. Peripheral Pulses: 2+ Radial (R). 2+ Radial (L). 2+ Pedal (R). 2+ Pedal (L) Abdominal Exam: Normal bowel sounds. Soft. normal abdomen, no visible veins, no tenderness, No hepatospenomegaly. No masses Ankle Exam: Negative ankle edema Lower extremities: Negative lower extremity edema Neuro/Mental Status: A&O x4. Coherent. Thoughts/Psych: feeling down, improved appetite, depressed Skin Exam: Normal inspection. Normal color. Warm. Dry Condition at Discharge: Stable Final Diagnosis/Problems List #hypertensive urgency #DAYLIN due to VMN #UTI #dehydration #dyslipidemia #depression #insomnia #vitamin D deficiency #medication non compliance #homeless Discharge Disposition: Home Discharge Instruct/Medications Diet: Cardiac 2g Na,low cholest Activity: No Restrictions, As Tolerated Follow Up/Referral: Please follow up with PCP in 1-2 weeks Please follow up in discharge clinic in 1-2 weeks Medications: Lisinopril 20 mg p.o. daily Carvedilol 3.125 mg 2 times a day Mirtazapine 15 mg once a day Scheduled Carvedilol (Coreg), 3.125 MG PO Q12HR Lisinopril (Lisinopril), 1 TAB PO DAILY, (Reported) Mirtazapine (Remeron), 15 MG PO HS Rosuvastatin Calcium (Rosuvastatin Calcium), 1 TAB PO DAILY, (Reported) Discharge Statement: "Patient was advised to return to the ER or call 911 if any headaches, dizziness, shortness of breath, chest pain, abdominal pain, bleeding, fevers, or worsening of medical condition. Patient was counseled about treatment plan, medications, possible side effects, patientverbalized understanding. All questions were answered to the best of my ability. This discharge took greater then 30 minutes in planning, reviewing documentation, counseling the patient, and discussing with other team members." ASSESSMENT ASSESSMENT Assessment #hypertensive urgency #DAYLIN due to VMN #UTI #dehydration #dyslipidemia #depression #insomnia #vitamin D deficiency #medication non compliance #homeless PRINCE MILLS RESIDENT Feb 03, 2025 15:01
== END 2025-02-03 18:47 | disposition home or self-care (01) | DRG 199 ==
LOC: ER 11:56 → EDBD 11:56 → OVERFLOW 21:23 → CENTRAL 01-30 22:37
PROVIDERS: ADMIT Internal Medicine Geriatric Medicine; ATTEND Internal Medicine Geriatric Medicine
DX: I16.0 Hypertensive urgency (principal); N17.0 Acute kidney failure with tubular necrosis; E86.0 Dehydration; I48.91 Unspecified atrial fibrillation; E55.9 Vitamin D deficiency, unspecified; E78.00 Pure hypercholesterolemia, unspecified; F41.9 Anxiety disorder, unspecified; N39.0 Urinary tract infection, site not specified; G47.00 Insomnia, unspecified; F32.9 Major depressive disorder, single episode, unspecified; Z91.199 Patient's noncompliance with other medical treatment and regimen due to unspecified reason; Z59.00 Homelessness unspecified; Z82.49 Family history of ischemic heart disease and other diseases of the circulatory system; Z82.3 Family history of stroke; Z80.6 Family history of leukemia; Z79.899 Other long term (current) drug therapy
CPT/HCPCS: 36415; 70450; 71045; 80048; 80053; 80307; 81001; 81003; 82270; 82306; 82607; 83036; 84443; 84484; 85007; 85025; 85027; 87086; 93005; 93306; 99291; G0378